=== PATIENT | female | born 1965 | race Two or more races ===

== ENCOUNTER 2017-12-16 23:31 | Emergency (ER) | payer MEDICAID ==
[~2017-12-16] VITALS: Ht 149.9 cm; Wt 100.2 kg
[2017-12-16] MEDS ORDERED: INSU100V11 (23:45)
[2017-12-16] MEDS ORDERED: METF-495 PO (23:45)
--- NOTE | 2017-12-16 23:55 | NUR ---
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
[2017-12-17] MEDS ORDERED: IV NORMAL SALINE 1000 ML BAG IV ONE
[2017-12-17 00:17] LABS: BASOPHILS % (AUTO) 0.4 % (0.0-2.0); EOSINOPHILS # (AUTO) 0.1 K/uL (0.0-0.7); EOSINOPHILS % (AUTO) 1.8 % (0.0-7.0); HEMATOCRIT 33.8 % (31.2-41.9); HEMOGLOBIN 11.3 g/dL (10.9-14.3); LYMPHOCYTES # (AUTO) 2.1 K/uL (20.0-40.0); MEAN CORPUSCULAR HEMOGLOBIN 28.3 uug (24.7-32.8); MEAN CORPUSCULAR HGB CONC 33 g/dL (32.3-35.6); MEAN CORPUSCULAR VOLUME 84.9 fL (75.5-95.3); MONOCYTES # (AUTO) 0.6 K/uL (2.0-10.0); MONOCYTES % (AUTO) 8.9 % (0.0-11.0); NEUTROPHILS # (AUTO) 3.4 K/uL (1.8-8.9); NEUTROPHILS % (AUTO) 54.9 % (38.5-71.5); PLATELET COUNT (AUTO) 166 K/uL (179-408); RED BLOOD CELL COUNT(AUTO) 3.98 MIL/uL (3.63-4.92); WHITE BLOOD COUNT (AUTO) 6.2 K/uL (3.8-11.8)
[2017-12-17 00:27] LABS: POTASSIUM 3.6 mmol/L (3.5-5.1)
[2017-12-17 00:40] LABS: BILIRUBIN,DIRECT 0.1 mg/dL (0.0-0.2); BILIRUBIN,TOTAL 0.3 mg/dL (0.2-1.0); TOTAL PROTEIN, SERUM 7.8 g/dL (6.4-8.2)
[2017-12-17] MEDS ORDERED: INSULIN NPH 1,000 UNITS/10 ML VIAL SQ ONE ×2 (00:45→01:06)
--- NOTE | 2017-12-17 01:14 | NUR ---
pt denies cp/sob, pt advised to f/u with pmd or return to er for worsening of symptoms,verbalizes undertstanding.ambulated in asteady gait
== END 2017-12-17 01:18 | disposition home or self-care (01) ==
LOC: ER 23:36
DX: E11.65 Type 2 diabetes mellitus with hyperglycemia (principal); Z88.2 Allergy status to sulfonamides; Z79.84 Long term (current) use of oral hypoglycemic drugs; Z79.4 Long term (current) use of insulin
CPT/HCPCS: 36415; 70030-TC; 71045; 85025; 85730; 93005; A4663; J1815; J7030